=== PATIENT | male | born 1985 | race Caucasian/White ===

== ENCOUNTER 2021-05-19 06:36 | Day surgery (SDC) | payer OTHER ==
[2021-05-19] VITALS (11 sets, daily range): BP systolic 111–142; BP diastolic 84–95; PULSE 63–103; TEMP 98.4
[~2021-05-19] VITALS: Ht 180.3 cm; Wt 83.6 kg
[2021-05-19 07:23] LABS: HEMATOCRIT 44.5 % (42.0-52.0); HEMOGLOBIN 15.1 g/dl (13.5-18.0); MEAN CELL VOLUME 88 fl (80.0-100.0); MEAN CORPUSCULAR HEMOGLOBIN 30 pg (27.0-31.0); MEAN CORPUSCULAR HGB CONC 34 g/dl (33.0-37.0); MEAN PLATELET VOLUME 9.3 fl (7.4-10.4); PLATELET COUNT 255 K/mm3 (130-400); RED BLOOD COUNT 5.05 M/mm3 (4.20-5.60); REDCELL DISTRIBUTION WIDTH-CV 12.2 % (11.5-14.5)
[2021-05-19 07:30] LABS: PROTHROMBIN TIME 11.1 SECONDS (9.7-12.8)
[2021-05-19 07:32] LABS: PARTIAL THROMBOPLASTIN TIME 29.9 SECONDS (26.0-37.0)
[2021-05-19] MEDS ORDERED: CELEXA 20MG20 MG/TAB PO (07:32)
[2021-05-19] MEDS ORDERED: TOPROL XL 25MG25 MG PO (07:33)
[2021-05-19] MEDS ORDERED: ASPIRIN 81M81 MG/TA2 PO (07:33)
[2021-05-19] MEDS ORDERED: ZYRTEC 10MG10 MG PO (07:33)
[2021-05-19 07:37] LABS: CALCIUM 9.7 mg/dL (8.4-10.2); CREATININE, serum 0.91 mg/dL (0.72-1.25)
--- NOTE | 2021-05-19 12:35 | NUR ---
aLL AIR RELEASED FROM BAND IN 2-3 ML INCRIMANETS.NO BLEEDING OBSERVED AT SITE,WRAPPED IN GAUZE AND COBAN.
--- NOTE | 2021-05-19 12:59 | NUR ---
Discharge instructions given to pt.pt verbalizes understanding.INT removed,catheter tip intact.Dressing observed clean,dry,intact,soft to touch.Pt escorted out via wheelchair by Franck Quiroga.
== END 2021-05-19 13:29 ==
LOC: COL.CAR 06:36
PROVIDERS: Internal Medicine Cardiovascular Disease
DX: I77.1 Stricture of artery (principal); R07.9 Chest pain, unspecified; R00.2 Palpitations; R94.39 Abnormal result of other cardiovascular function study; R94.31 Abnormal electrocardiogram [ECG] [EKG]; R93.1 Abnormal findings on diagnostic imaging of heart and coronary circulation; Z79.82 Long term (current) use of aspirin; Z79.899 Other long term (current) drug therapy
CPT/HCPCS: J1644; J2250; J3010; Q9967